=== PATIENT | female | born 1990 | race Caucasian/White ===

== ENCOUNTER 2016-10-12 13:26 | Emergency (ER) | payer MEDICAID ==
[~2016-10-12] VITALS: Ht 162.6 cm; Wt 76.0 kg
[2016-10-12 14:17] VITALS: BP 116/74
== END 2016-10-12 15:16 | disposition home or self-care (01) ==
LOC: ER 14:35
DX: S39.012A Strain of muscle, fascia and tendon of lower back, initial encounter (principal); S16.1XXA Strain of muscle, fascia and tendon at neck level, initial encounter; V49.9XXA Car occupant (driver) (passenger) injured in unspecified traffic accident, initial encounter; Y93.89 Activity, other specified; Y92.89 Other specified places as the place of occurrence of the external cause; Y99.8 Other external cause status
CPT/HCPCS: 99283